=== PATIENT | female | born 1975 ===

== ENCOUNTER 2022-08-31 17:43 | Outpatient (REF) | payer OTHER, SELFPAY ==
[2022-08-31 18:33] LABS: Influenza A PCR NEGATIVE (Negative); Influenza B PCR NEGATIVE (Negative); Resp Syncy Virus RNA Qual PCR NEGATIVE (Negative); SARS COV2 PCR INHOUSE POSITIVE (Negative)
== END 2022-08-31 17:44 | disposition home or self-care (01) ==
LOC: HO.LNP 17:43
PROVIDERS: Visit Provider Physician Assistant Medical
DX: Z20.822 Contact with and (suspected) exposure to COVID-19 (principal); R05.9 Cough, unspecified
CPT/HCPCS: 0241U